=== PATIENT | male | born 1980 | race Two or more races ===

== ENCOUNTER 2019-03-13 11:17 | Emergency (ER) | payer OTHER ==
[~2019-03-13] VITALS: Ht 175.3 cm; Wt 73.8 kg
[2019-03-13] MEDS ORDERED: PROPARACAINE OPHTH 0.5%, 15ML ONE (12:17)
[2019-03-13] MEDS ORDERED: FLUORESCEIN OPHTHALMIC 1 MG STRIP ONE (12:17)
--- NOTE | 2019-03-13 12:20 | NUR ---
FAUZIA Laws at bedside.
[2019-03-13] MEDS ORDERED: PROPARACAINE OPHTH 0.5%, 15ML EACHEYE ONE (12:30)
[2019-03-13] MEDS ORDERED: FLUORESCEIN OPHTHALMIC 1 MG STRIP EACHEYE ONE (12:30)
[2019-03-13] MEDS ORDERED: ONDANSETRON ODT 4 MG ONE (13:24)
[2019-03-13] MEDS ORDERED: HYDROcodone/APAP 5/325 TABLET ONE (13:24)
[2019-03-13] MEDS ORDERED: OXYcodone/APAP 5/325MG TABLET ONE (13:28)
[2019-03-13] MEDS ORDERED: ERYTHROMYCIN OPHTH 0.5%, 1GM LEFTEYE ONE (13:30)
[2019-03-13] MEDS ORDERED: OXYcodone/APAP 5/325MG TABLET PO ONE (13:30)
[2019-03-13] MEDS ORDERED: ONDANSETRON ODT 4 MG PO ONE (13:30)
[2019-03-13 13:58] VITALS: BP 121/71
--- NOTE | 2019-03-13 13:58 | NUR ---
Patient/Caregiver given discharge instructions and they have confirmed that they understand the instructions. Patient ambulatory with steady gait.
[2019-03-13] MEDS ORDERED: DIPH,PERTUSS(ACELL),TET VAC/PF 0.5 ML IM-VACC ONE ×2 (18:10→18:30)
== END 2019-03-13 13:58 | disposition home or self-care (01) ==
LOC: ED 13:51
DX: T15.02XA Foreign body in cornea, left eye, initial encounter (principal); Y93.89 Activity, other specified; Y92.89 Other specified places as the place of occurrence of the external cause; Y99.8 Other external cause status
CPT/HCPCS: 65222; 90471; 90715; 99284; Q0162